=== PATIENT | female | born 1990 | race Caucasian/White ===

== ENCOUNTER 2017-02-12 05:55 | Inpatient (IN) | payer OTHER ==
--- NOTE | 2017-02-10 14:08 | PDGENHP ---
History and Physical History and Physical: PREOPERATIVE HISTORY AND PHYSICAL EXAM DATE OF ADMISSION: 02/12/2017 PLANNED PROCEDURE: Repeat Delivery and Right ovarian cystectomy with possible right salpingo-oophorectomy. HISTORY OF PRESENT ILLNESS: 26 year-old white female @ 39.0 weeks gestation with EDC of 02/19/2017 by LMP consistent with 19.4 week sonogram. is complicated by delayed care and large (8 cm) right ovarian dermoid cyst. Patient's past medical history is significant for depression and migraines. G1 was delivered by primary low-transverse uterine incision delivery status post induction of labor for post-dates complicated by prolapsed cord (performed at [facility] in [facility] in 2014). GBS is negative. surveillance performed at end of initially for diagnosis of hydramnios, which has subsequently resolved, and decreased movement. O+ / Antibody Screen Negative / RPR NR / Rubella Immune / HBsAg Neg / HIV Neg / CF carrier Neg / Gonorrhea & Chlamydia screens Neg/Neg / 1hr GTT 130/ GBS Neg. MEDICAL HISTORY: 1. Depression 2. Migraine Headaches CURRENT MEDICATIONS: 1. Vitamins 2. Zantac SURGICAL HISTORY: 1. Primary LTUS Delivery (2014) 2. Gamaliel teeth extraction (during High School) ALLERGIES: No known drug allergies. SOCIAL HISTORY: , [id number], denies tobacco use, illicit drug use and ETOH use during . FAMILY MEDICAL HISTORY: Non-contributory to current . OBSTETRICAL/GYNECOLOGIC HISTORY: , prior delivery, late care, 8 cm dermoid cyst currently present on right ovary. REVIEW OF SYSTEMS: GENERAL: Denies generalized faintness or fatigue HENT: Denies headache, vision changes, sore throat PULM: Denies cough, shortness of breath CV: Denies palpitations, chest pain GI: Denies nausea, vomiting, diarrhea, constipation : Denies dysuria, vaginal bleeding, vaginal discharge, movement MSK: Denies significant swelling in extremities SKIN: Denies rash, or new lesion NEURO: Denies numbness, weakness, tingling PSYCH: Denies significant mood changes PHYSICAL EXAM: (performed 02/02/2017) VITALS: BP: 104/50; weight 166 (02/04/17) GENERAL APPEARANCE: Alert & oriented x 3 HENT: Normocephalic, atraumatic, supple HEART: RRR, no M/R/G LUNGS: CTAB, no wheezes, no rhonchi ABDOMEN: Gravid, non-distended, non-tender PELVIC EXAM: deferred ASSESSMENT: FHT 140 bpm, Cephalic presentation PLACENTA: Location, anterior, grade 2 ASSESSMENT: 26 year-old white female @ 39.0 weeks gestation presents for scheduled delivery and removal of right ovarian cyst. PLAN: Scheduled repeat delivery and right ovarian cystectomy on 2016 at [facility].
[2017-02-12] MEDS ORDERED: CITRIC ACID/SODIUM CITRATE 30 ML UDCUP PO ONE (06:24)
[2017-02-12] MEDS ORDERED: ceFAZolin 2 GM/DEXTROSE 100 ML IV ONE (06:24)
[2017-02-12] MEDS ORDERED: LR 500 ML IV ONE (06:24)
[2017-02-12] MEDS ORDERED: LR 1,000 ML IV SCH (06:30)
[2017-02-12 06:47] LABS: % IMMATURE GRANULYOCYTES 1.3 % (0.0-1.1); ABSOLUTE IMMATURE GRANULOCYTES 0.15 10^3/uL (0.00-0.10); ADD DIFF? NO; ADD MORPH? NO; ADD SCAN? NO; ATYPICAL LYMPHOCYTE FLAG 0 (0-99); FRAGMENT RBC FLAG 10 (0-99); HEMATOCRIT 31.3 % (38.0-47.0); HEMOGLOBIN 10.7 g/dL (12.6-16.3); LEFT SHIFT FLG 10 (0-99); LIPEMIA HEMOLYSIS FLAG 90 (0-99); MEAN CELL HEMOGLOBIN 28.8 pg (27.9-34.1); MEAN CELL HEMOGLOBIN CONCENTR. 34.2 g/dL (32.4-36.7); MEAN CELL VOLUME 84.4 fL (81.5-99.8); MEAN PLATELET VOLUME 10.2 fL (8.7-11.7); PLATELET CLUMPS FLAG 20 (0-99); PLATELET COUNT 214 10^3/uL (150-400); RED BLOOD CELL COUNT 3.71 10^6/uL (4.18-5.33); RED CELL DISTRIBUTION WIDTH 13.9 % (11.5-15.2)
[2017-02-12] MEDS ORDERED: OLIVE OIL 118 ML BTL ONE (07:11)
[2017-02-12] MEDS ORDERED: LIDOCAINE 1% 300 MG/30 ML SDV ONE (07:11)
[2017-02-12] MEDS ORDERED: MISOPROSTOL 200 MCG TAB ONE (07:12)
[2017-02-12] MEDS ORDERED: AMMONIA AROMATIC 1 EACH AMP IH ONE (07:12)
[2017-02-12] MEDS ORDERED: OXYTOCIN 10 UNIT/ML VIAL ONE (07:12)
[2017-02-12] MEDS ORDERED: TERBUTALINE SULFATE 1 MG/ML VIAL ONE (07:12)
[2017-02-12] MEDS ORDERED: CITRIC ACID/SODIUM CITRATE 30 ML UDCUP ONE (07:19)
[2017-02-12] MEDS ORDERED: CEFAZOLIN 2 GM/DEXTROSE/100 ML BAG IV ONE (07:20)
[2017-02-12] MEDS ORDERED: morphINE PF 5 MG/10 ML INJ ONE (07:34)
[2017-02-12] MEDS ORDERED: MEPERIDINE 25 MG/ML SYR IVP PRN (08:18)
[2017-02-12] MEDS ORDERED: ONDANSETRON 4 MG/2 ML VIAL IVP PRN (08:18)
[2017-02-12] MEDS ORDERED: fentaNYL 100 MCG/2 ML INJ IVP PRN (08:18)
[2017-02-12] MEDS ORDERED: NALOXONE HCL 0.4 MG/ML INJ IVP PRN (08:18)
--- NOTE | 2017-02-12 09:42 | POSTANESTH ---
Post Anesthetic Evaluation Cardiovascular Status: Normal, Stable Respiratory Status: Normal, Stable Level of Consciousness/Mental Status: Can Participate in Eval Pain Control: Adequate, Prn Tx Ordered Nausea/Vomiting Control: Adequate, Prn Tx Ordered Complications Possibly Related to Anesthesia: None Noted
[2017-02-12] MEDS ORDERED: ACETAMINOPHEN 325 MG TAB PO PRN (09:45)
[2017-02-12] MEDS ORDERED: PROMETHAZINE HCL 25 MG/ML INJ IVP PRN (09:45)
[2017-02-12] MEDS ORDERED: OXYCODONE/APAP 5/325 TAB PO PRN (09:45)
--- NOTE | 2017-02-12 09:55 | POSTOPPROG ---
Post Op Note Date of Operation: 02/12/17 Surgeon: Noe Farnsworth [employer] Operator: BRAVO Hook Anesthesia: Spinal Pre-op Diagnosis: Prior delivery, term , dermoid ovarian cyst Post-op Diagnosis: Same as above Indication: 26 yo scheduled for repeat CD and right ovarian cystectomy Procedure: Scheduled repeat CD, right ovarian cystectomy Findings: Enlarged right ovary, 4 cm dermoid cyst Inf/Abcess present in the surg proc area at time of surgery?: No Depth: Organ Space EBL: 500-1000 Complications: None
--- NOTE | 2017-02-12 10:10 | SUROPNOTE ---
[facility] Operative Report - Surgery OPERATIVE REPORT DATE OF OPERATION: 02/12/2017 SURGEON: Silvino Farnsworth MD [employer] OPERATOR: BRAVO Hook; Mercedez Hall RN ANESTHESIA: Spinal PREOPERATIVE DIAGNOSIS: 1. Suspected 8 cm dermoid right ovarian cyst 2. History of prior delivery 3. IUP @ 39.0 weeks gestation POSTOPERATIVE DIAGNOSIS: 1. 4 cm dermoid cyst of right ovary 2. Same as above PROCEDURES PERFORMED: 1. Scheduled repeat delivery 2. Right ovarian cystectomy FINDINGS: 1. Viable male , Apgars 8 @ 1 min, 9 @ 5 min; 's weight 8 lbs, 5 oz ; 4 cm right ovarian cyst, dermoid--including sebum and hair. SPECIMENS: 1. Dermoid cyst and contents EBL: 800 mL INDICATIONS: 26 yo WF @ 39.0 weeks with history of prior delivery desires scheduled repeat CD and removal of right ovarian cyst. DESCRIPTION OF PROCEDURE: After appropriate consent was obtained patient was taken to OR. Epidural anesthesia was redosed and found to be adequate. 2 grams Cefzol given IV. Patient was prepped and draped according to usual sterile fashion. Time out was performed. A Pfannenstiel skin incision was performed with scalpel and subcutaneous tissue was incised down to rectus abdominis fascia. Fascia was nicked in midline and incision extended bilaterally with curved Tolbert scissors. Rectus muscles were incised off inferior and superior fascial segments and then in midline. Peritoneal cavity was entered bluntly. Bladder blade was placed to retract bladder from lower uterine segment. Bladder flap was created with Metzenbaum scissors and pick-ups. Bladder blade replaced to reflect bladder flap. Transverse lower uterine incision was made with scalpel. was delivered vertex through hysterotomy. Shoulders and body also delivered without difficulty. Cord was clamped and cut and infant was handed to resuscitation team. Cord blood was obtained. Placenta was manually extracted from intrauterine cavity and cavity was curetted with dry lap sponge after uterus was exteriorized. Hysterotomy was reapproximated with two 0 vicryl stitches; the first running and locking and the second a running, imbricating stitch. Attention was moved to right ovary which was found to be enlarged. A 3 cm simple cyst was opened and drained. 4 cm dermoid cyst was incised and removed from right ovary using scalpel, Metzenbaum scissors and clamps for counter traction. Oozing from ovarian tissue was stopped with Bovie and a running 2-0 chromic stitch. Gutters were cleared of debris and irrigated with warm saline. Uterus was placed back into anatomic position. Thorough inspection of pelvis and peritoneal cavity revealed normal tubes and ovaries and no additional bleeding from hysterotomy or other sites. Good hemostasis noted. Fascial incision was reapproximated with a single running 0-vicryl suture. Skin was closed with a subcuticular 4-0 monocryl stitch, steri-strips and bandaged appropriately. At the end of procedure sponge, lap and needle count was correct x 2. Patient tolerated procedure well and she was taken to PACU awake and in stable condition.
[2017-02-12] MEDS: KETOROLAC 30 MG/1 ML SDV IVP PRN ×3 (11:57→23:35)
[2017-02-13] MEDS: KETOROLAC 30 MG/1 ML SDV IVP PRN (05:11)
[2017-02-13] MEDS: DOCUSATE SODIUM 100 MG CAP PO PRN ×2 (09:20→20:53)
[2017-02-13] MEDS: HYDROCODONE/APAP 5/325 TAB PO PRN ×4 (09:20→22:11)
[2017-02-13] MEDS: IBUPROFEN 600 MG TAB PO PRN ×3 (12:14→23:53)
--- NOTE | 2017-02-13 13:08 | OBPP ---
Progress Note Assessment/Plan: Assessment: 27 y/o POD #1 s/p Rpt LTCS and ovarian cystectomy secondary to dermoid Plan: Bifera BID. Ambulate with support and may shower today. support and routine POC. 02/13/17 13:09 Subjective/ Course: 02/13/17 12:52 Pt is doing well this am. She has good pain control with [place] and Ibuprofen. She is ambulating and voiding without difficulty and denies dizziness. Breast feeding is going well. Objective: 02/13/17 05:00 Patient ABO/Rh O POSITIVE 02/12/17 06:30 Temp Pulse Resp BP Pulse Ox 37.1 C 95 18 98/60 L 93 02/13/17 08:00 02/13/17 08:00 02/13/17 08:00 02/13/17 08:00 02/13/17 08:00 Uterine Position/Fundal Height: Umbilicus -2 Uterine Tone: Firm Physical Exam - Physical Exam Neck: non-tender, full range of motion, supple Respiratory: chest non-tender, lungs clear, normal breath sounds Cardiac/Chest: regular rate, rhythm Extremities: swelling (no), Becca's sign (neg)
[2017-02-13] MEDS: IRON POLYSAC/IRON HEME 28 MG TAB PO SCH ×2 (14:00→20:53)
[2017-02-13 16:54] VITALS: RESP 16
[2017-02-13] MEDS ORDERED: OLIVE OIL 118 ML BTL ONE (17:15)
[2017-02-13] MEDS ORDERED: LIDOCAINE 1% 300 MG/30 ML SDV ONE (17:15)
[2017-02-13] MEDS ORDERED: MISOPROSTOL 200 MCG TAB ONE (17:16)
[2017-02-13] MEDS ORDERED: AMMONIA AROMATIC 1 EACH AMP IH ONE (17:16)
[2017-02-13] MEDS ORDERED: LACTULOSE 20 GM/30 ML UDCUP PO PRN (21:10)
[2017-02-13] MEDS ORDERED: BISACODYL 10 MG SUPP PR PRN (21:10)
[2017-02-13] MEDS ORDERED: MAGNESIUM HYDROXIDE 30 ML UDCUP PO PRN (21:10)
[2017-02-13] MEDS ORDERED: POLYETHYLENE GLYCOL 3350 17 GM PKT PO PRN (21:10)
[2017-02-14] MEDS: SIMETHICONE 80 MG TAB CHEW PO SCH ×3 (00:04→12:36)
[2017-02-14] MEDS: SENNOSIDES/DOCUSATE SODIUM TAB PO SCH ×2 (00:05→08:13)
[2017-02-14] MEDS: HYDROCODONE/APAP 5/325 TAB PO PRN ×3 (02:08→10:36)
[2017-02-14 04:31] VITALS: O2SAT 95
[2017-02-14] MEDS: IBUPROFEN 600 MG TAB PO PRN ×2 (06:05→12:33)
[2017-02-14] MEDS: IRON POLYSAC/IRON HEME 28 MG TAB PO SCH (08:14)
--- NOTE | 2017-02-14 09:23 | OBGCSDC ---
General Delivery Information - General Info : 2 Para: 2 Abortions: 0 L&D Analgesia/Anesthesia Type: Spinal Admission Date: 02/12/17 Labs: Patient ABO/Rh O POSITIVE 02/12/17 06:30 Hct 27.7 % (38.0-47.0) L 02/13/17 05:00 - Hospital Course : 02/13/17 12:52 Pt is doing well this am. She has good pain control with [place] and Ibuprofen. She is ambulating and voiding without difficulty and denies dizziness. Breast feeding is going well. 02/14/17 09:20 Subjective: Amee is doing well. She is ambulating, voiding spontaneously, tolerating pain with PO meds, tolerating regular diet, . She reports flatus, but no BM. She desires DC home today. Objective: NAD, Lungs clear, Heart RRR, Abdomen soft, appropriately tender, incision is clean/dry/intact, bilateral lower extremities show no excessive swelling. - Delivery Providers Surgeon: Noe Farnsworth - Delivery Number of Prior Sections: 1 Indications for Current Section: Elective/Repeat Surgical Procedures: Scheduled EBL: 800 [place] Data [place] Delivery Date: 02/12/17 Delivery Time: 08:31 JOHN: 02/19/17 Gestational Age: 39 week(s) and 2 day(s) Sex of : Male [place] Weight (gm): 3780 g Score (1 Min): 8 Score (5 Min): 9 Discharge Information - Discharge Information Condition: Good Instruction/Follow Up: Two Weeks, Four Weeks, Six Weeks
[2017-02-14 14:46] VITALS: BP 95/62; PULSE 86; TEMP 98.3
== END 2017-02-14 14:30 | disposition home or self-care (01) | DRG 766 ==
LOC: FLD 05:55 → MERGE 05:55 → FOB 11:16
PROVIDERS: ADMIT Obstetrics & Gynecology; ATTEND Obstetrics & Gynecology Gynecology
PROC: 10D00Z1 Extraction of Products of Conception, Low, Open Approach (ICD-10-PCS; principal; 2017-02-12)
PROC: 0UT00ZZ Resection of Right Ovary, Open Approach (ICD-10-PCS; principal; 2017-02-12)
DX: O34.211 Maternal care for low transverse scar from previous cesarean delivery (principal); O26.893 Other specified pregnancy related conditions, third trimester; D27.0 Benign neoplasm of right ovary; F32.9 Major depressive disorder, single episode, unspecified; G43.909 Migraine, unspecified, not intractable, without status migrainosus; Z37.0 Single live birth; Z3A.39 39 weeks gestation of pregnancy
CPT/HCPCS: J0690; J1200; J1885; J2274; J2550; J3105